=== PATIENT | male | born 1935 | race Caucasian/White ===

== ENCOUNTER 2019-12-25 20:43 | Inpatient (IN) | payer MEDICARE, MEDICAID ==
[~2019-12-25] VITALS: Ht 165.1 cm; Wt 77.5 kg
[2019-12-25] MEDS ORDERED: ATORVASTATIN 10 MG TAB PO SCH (21:00)
[2019-12-25] MEDS ORDERED: PREGABALIN 50 MG CAP (LYRICA) PO SCH (21:00)
[2019-12-25] MEDS ORDERED: LIDOCAINE 5% (LIDODERM) PATCH TD SCH (21:00)
[2019-12-25] MEDS ORDERED: ATOR1TAB19 (21:24)
[2019-12-25] MEDS ORDERED: METF500T13 (21:24)
[2019-12-25] MEDS ORDERED: ARNU1INH (21:24)
[2019-12-25] MEDS ORDERED: oxygen INH (21:24)
[2019-12-25] MEDS ORDERED: SPIR12.9 (21:24)
[2019-12-25] MEDS ORDERED: FERR325T88 (21:24)
[2019-12-25] MEDS ORDERED: ALBU8.5H (21:24)
[2019-12-25] MEDS ORDERED: GABA-1171 (21:24)
[2019-12-25] MEDS ORDERED: PREG50CA (21:24)
[2019-12-25] MEDS ORDERED: PROTPAK (21:24)
[2019-12-25] MEDS ORDERED: CYCL10TA (21:24)
[2019-12-25] MEDS ORDERED: ECOT81TA5 PO (21:24)
[2019-12-25] MEDS ORDERED: VENTAER (21:24)
[2019-12-25] MEDS ORDERED: LEVE1INJ5 (21:24)
[2019-12-25 21:54] LABS: BASO % 0.1 % (0.0-1.0); EOS % 0.1 % (0.0-3.0); HEMATOCRIT 30.4 % (42.0-52.0); HEMOGLOBIN 9.4 g/dl (13.5-17.5); LYMPH # 0.3 10^3/uL (1.5-5.0); LYMPH % 2.7 % (24.0-44.0); MEAN CORPUSCULAR HEMOGLOBIN 30.8 pg (27.0-33.0); MEAN CORPUSCULAR HGB CONC 30.9 g/dl (32.0-36.5); MEAN CORPUSCULAR VOLUME 99.7 fl (80.0-96.0); MONO # 0.1 10^3/uL (0.0-0.8); MONO % 0.6 % (0.0-5.0); NEUTROPHILS # 9.9 10^3/uL (1.5-8.5); PLATELET COUNT, AUTOMATED 208 10^3/uL (150-450); RED BLOOD COUNT 3.05 10^6/uL (4.30-6.10); WHITE BLOOD COUNT 10.3 10^3/uL (4.0-10.0)
--- NOTE | 2019-12-25 22:20 | REPVR ---
PROCEDURE INFORMATION: Exam: XR Chest, 1 View Exam date and time: 12/25/2019 9:28 PM Age: 84 years old Clinical indication: Other: SOB TECHNIQUE: Imaging protocol: XR of the chest Views: 1 view. COMPARISON: No relevant prior studies available. FINDINGS: Lungs: Bilateral cephalization of flow may indicate pulmonary venous hypertension. No segmental or lobar infiltrates. Pleural space: Unremarkable. No pleural effusion. No pneumothorax. Heart/Mediastinum: Unremarkable. No cardiomegaly. Bones/joints: Unremarkable. IMPRESSION: Bilateral cephalization of flow may indicate pulmonary venous hypertension. Electronically signed by: Osvaldo Alfaro On 12/25/2019 22:19:32 PM
[2019-12-25 22:23] LABS: ALBUMIN 3.6 GM/DL (3.2-5.2); BILIRUBIN,DIRECT 0.1 MG/DL (0.0-0.2); BILIRUBIN,TOTAL 0.3 MG/DL (0.2-1.0); CK-MB VALUE MASS 4.3 NG/ML (<3.6); CREATININE FOR GFR 1.61 MG/DL (0.70-1.30); GLOMERULAR FILTRATION RATE 43.5 (>35); MB/CK RELATIVE INDEX 4.06 (< OR =4); POTASSIUM SERUM 4.5 MEQ/L (3.5-5.1); TOTAL PROTEIN 7.4 GM/DL (6.4-8.2); TROPONIN I 0.2 NG/ML (< 0.10)
[2019-12-25] MEDS ORDERED: ACETAMINOPHEN TAB 650MG DOSE (2X325MG) PO PRN (23:15)
[2019-12-25] MEDS ORDERED: MAALOX 30 ML SUSP *UDC PO PRN (23:15)
[2019-12-25] MEDS ORDERED: ALBUTEROL 90 MCG/ACT 8GM HFA INHALER INH PRN (23:15)
--- NOTE | 2019-12-25 23:19 | HPEPDOC ---
[facility] Medical History & Physical Date of Admission Dec 25, 2019 Date of Service: Dec 25, 2019 Attending Physician: ROULA MORA MD History and Physical TIME OF SERVICE: 11:50 PM CHIEF COMPLAINT: Shortness of breath HISTORY OF PRESENT ILLNESS: This patient is a poor historian and wasn't able to provide his past medical history. The majority of history was obtained from ER documents. This is an 84-year-old male that was transferred from [facility] for evaluation by the pulmonary service because of acute COPD with BiPAP dependent respiratory failure. Per ER notes, he received mag sulfate, Lasix, Solu-Medrol, and to nip treatments at [facility] and was on 3 L nasal cannula, while he is being transported here; he has not required BiPAP since his arrival here. The patient reports presenting to [facility] because he developed sudden onset shortness of breath. He denies having associated chest pain, runny nose, cough, fever, chills, palpitations, dizziness, or back pain. He admits to having chronic left lower extremity swelling. Currently, he reports feeling better but is not quite back to his baseline. He is requesting to be transferred back home in the morning. 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 HOME MEDICATIONS: Please see below. PHYSICAL EXAMINATION: VITAL SIGNS: Please see below. GEN: well nourished / well developed/ NAD / sitting up in the ER by drinking coffee INTEGUMENT: He does not have facial plethora HEENT:NCAT / lips are not cyanotic / trachea midline / NC in place / maximal laryngeal height is <4cm / mucus membranes moist and pink / sclera anicteric CVS: RRR/ distant heart sounds / radial and dorsalis pedis pulses intact / he has left lower extremity swelling LUNGS: there is no nasal flairing /he is able to speak full sentences without stopping to take a breath / is not coughing or using accessory muscles / has equal air entry bilaterall / his breath sounds are diminished ABDOMEN: percussion, soft & not tender with palpation NEURO: He is hard of hearing / speech is not dysarthric /he does not have asterixis PSYCH: alert and oriented / able to understand and follow all commands LABORATORY DATA: See below. IMAGING: Chest x-ray " IMPRESSION: Bilateral cephalization of flow may indicate pulmonary venous hypertension. " ASSESSMENT: Mr. Wright is an 84 yr old M w a PMH of chronic CAD, hypertension, COPD, IDDM, and BPH who is admitted for management of acute COPD. PLAN: 1. Acute COPD It is unclear what the triggers right now Chest x-ray was unremarkable Plan: admit to PCU / continue with supplemental O2 / continuous pulse oximetry / aspiration precautions / COPD diet / f/u d-dimer, influenza / Dunebs Q6H, Albuterol Q4HP, Prednisone + PPI / will not give Levofloxacin because because he denies having a change in his cough/ refer to Pet Handler for repeat PFTs and Pulmonary Rehab when ready for d/c 2. Elevated troponin. Possibly due to renal impairment. He denies having chest pain but he does have shortness of breath, which could be an ACS equivalent Plan: Telemetry/follow-up, serial troponins, BNP and EKG 3. CKD versus MONICA on CKD His creatinine is 1.61 We do not have a baseline creatinine within the last 6 months. Plan: We'll give 500ml of IV fluids and f/u-up BMP in the morning 4. Macrocytic anemia Possibly secondary to COPD Plan: Follow-up CBC & monitor for bleeding 5. Chronic CAD / Dyslipidemia Plan: Continue aspirin and atorvastatin 6. Chronic hypertension Plan: Monitor vitals 7. IDDM His target A1c with a limited life expectancy is 8.5% Plan: diabetic diet / f/u accuchecks & A1C / hypoglycemia protocol / sliding scale insulin with detemir 15 units daily / hold metformin 8. Chronic back pain Plan: Lidocaine patch DVT PROPHYLAXIS: Heparin DISPOSITION: Anticipate transfer back to [facility] after more than 2 midnight stay / PFS consult has been placed Vital Signs Vital Signs Date Time Temp Pulse Resp B/P (MAP) Pulse Ox O2 Delivery O2 Flow Rate FiO2 12/25/19 21:45 144/63 (90) 12/25/19 21:43 73 100 Nasal Cannula 2.0 12/25/19 20:51 97.6 26 Laboratory Data Labs 24H Laboratory Tests 2 12/25/19 21:43: Immature Granulocyte % (Auto) 0.5, Neutrophils (%) (Auto) 96.0H, Lymphocytes (%) (Auto) 2.7L, Monocytes (%) (Auto) 0.6, Eosinophils (%) (Auto) 0.1, Basophils (%) (Auto) 0.1, Neutrophils # (Auto) 9.9H, Lymphocytes # (Auto) 0.3L, Monocytes # (Auto) 0.1, Eosinophils # (Auto) 0.0, Basophils # (Auto) 0.0, Nucleated Red Blood Cells % (auto) 0.0, Anion Gap 6L, Glomerular Filtration Rate 43.5, Calcium Level 9.0, Total Bilirubin 0.3, Direct Bilirubin 0.1, Aspartate Amino Transf (AST/SGOT) 11, Alanine Aminotransferase (ALT/SGPT) 35, Alkaline Phosphatase 88, Total Creatine Kinase 106, Creatine Kinase MB 4.3H, Creatine Kinase MB Relative Index 4.06H, Troponin I 0.20H, Total Protein 7.4, Albumin 3.6, Albumin/Globulin Ratio 0.95L 12/25/19 22:01: POC pH (Misc Panel) 7.413, POC Base Excess (Misc Panel) 6.0H, POC Saturated Percent O2 (Misc) 95, POC pO2 (Misc Panel) 78.0L, POC pCO2 (Misc Panel) 47.8H, POC HCO3 (Misc Panel) 30.5H, POC Total CO2 (Misc Panel) 32.0H CBC/BMP Laboratory Tests 12/25/19 21:43 Home Medications Scheduled Aspirin (Aspir-Low) 81 Mg Tablet.dr, 81 MG PO DAILY Atorvastatin Calcium (Atorvastatin Calcium) 10 Mg Tablet, 10 MG PO QHS Ferrous Sulfate (Ferrous Sulfate) 325 Mg Tablet, 325 MG PO DAILY Fluticasone Furoate (Arnuity Ellipta) 100 Mcg Blst.w.dev, 100 MCG INH DAILY Gabapentin (Gabapentin) 100 Mg Capsule, 200 MG PO BID Insulin Detemir (Levemir Flextouch) 100 Unit/1 Ml Insuln.pen, 15 UNIT SC DAILY Metformin HCl (Metformin HCl) 500 Mg Tablet, 500 MG PO BID Pantoprazole Sodium (Pantoprazole Sodium) 40 Mg Tablet.dr, 40 MG PO DAILY Pregabalin (Lyrica) 50 Mg Capsule, 50 MG PO QHS Tiotropium [place] (Spiriva Respimat) 4 Gm Mist.inhal, 1 PUFF INH DAILY Scheduled PRN Acetaminophen (Tylenol) 325 Mg Tablet, 650 MG PO TID PRN for PAIN Albuterol Sulfate (Ventolin Hfa) 18 Gm Hfa.aer.ad, 2 PUFF INH Q4H PRN for SHORTNESS OF BREATH Cyclobenzaprine HCl (Cyclobenzaprine HCl) 10 Mg Tablet, 10 MG PO QHS PRN for MUSCLE SPASMS Ipratropium/Albuterol Sulfate (Iprat-Albut 0.5-3(2.5) mg/3 ml) 3 Ml Ampul.neb, 3 ML INH Q4H PRN for SHORTNESS OF BREATH Allergies Coded Allergies: No Known Allergies (Verified , 07/31/07) A-FIB/CHADSVASC A-FIB History Current/History of A-Fib/PAF?: No Current PO Anticoag Therapy: No ROULA MORA MD Dec 25, 2019 23:18
[2019-12-25] MEDS: HEPARIN SOD (PORCINE) 5000 UNITS/ML VIAL (J1644 PER 1000UNITS) SC SCH (23:44)
[2019-12-25] MEDS ORDERED: ATOR1TAB19 PO (23:48)
[2019-12-25] MEDS ORDERED: ACET-907 PO (23:48)
[2019-12-25] MEDS ORDERED: FERR1TAB8 PO (23:48)
[2019-12-25] MEDS ORDERED: VENTAER INH (23:48)
[2019-12-25] MEDS ORDERED: ARNU1INH INH (23:48)
[2019-12-25] MEDS ORDERED: SPIR12.9 INH (23:48)
[2019-12-25] MEDS ORDERED: IPRA0.00 INH (23:48)
[2019-12-25] MEDS ORDERED: ASPI81TA21 PO (23:48)
[2019-12-25] MEDS ORDERED: PANT40TA3 PO (23:48)
[2019-12-25] MEDS ORDERED: GABA-1171 PO (23:48)
[2019-12-25] MEDS ORDERED: LEVE1INJ5 SC (23:48)
[2019-12-25] MEDS ORDERED: CYCL10TA PO (23:48)
[2019-12-25] MEDS ORDERED: PREG50CA PO (23:48)
[2019-12-25] MEDS ORDERED: METF-839 PO (23:48)
[2019-12-26] MEDS ORDERED: NS 1,000 ML IV SCH
[2019-12-26] MEDS ORDERED: LevoFLOXacin IV 250 MG in IV 1 EA IV SCH ×2
[2019-12-26] MEDS ORDERED: NS 500 ML IV SCH (01:15)
[2019-12-26] MEDS ORDERED: ACETAMINOPHEN TAB 650MG DOSE (2X325MG) PO PRN (01:15)
[2019-12-26] MEDS ORDERED: CYCLOBENZAPRINE 10 MG TAB PO PRN (01:15)
[2019-12-26 03:15] LABS: HEMATOCRIT 28.8 % (42.0-52.0); MEAN CORPUSCULAR HEMOGLOBIN 30.8 pg (27.0-33.0); MEAN CORPUSCULAR HGB CONC 31.3 g/dl (32.0-36.5); MEAN CORPUSCULAR VOLUME 98.6 fl (80.0-96.0); PLATELET COUNT, AUTOMATED 210 10^3/uL (150-450); RED BLOOD COUNT 2.92 10^6/uL (4.30-6.10); WHITE BLOOD COUNT 6.8 10^3/uL (4.0-10.0)
[2019-12-26] MEDS: IPRATROPIUM 0.5MG/ALBUTEROL 2.5MG INH SOL UD 3ML (DUONEB)(J7620) NEB SCH ×3 (03:45→13:06)
[2019-12-26 03:46] LABS: CALCIUM LEVEL 8.6 MG/DL (8.8-10.2); CREATININE FOR GFR 1.53 MG/DL (0.70-1.30); GLOMERULAR FILTRATION RATE 46.2 (>35); POTASSIUM SERUM 5.1 MEQ/L (3.5-5.1); TROPONIN I 0.22 NG/ML (< 0.10)
[2019-12-26] MEDS ORDERED: TIOTROPIUM INHALER/CAPSULE (SPIRIVA) INH SCH (08:00)
[2019-12-26 08:16] VITALS: BP 182/78
[2019-12-26] MEDS ORDERED: PANTOPRAZOLE 40MG TAB (PROTONIX) PO SCH (09:00)
[2019-12-26] MEDS ORDERED: predniSONE 20 MG TAB PO SCH (09:00)
[2019-12-26] MEDS ORDERED: **NOTE PATIENT COMMENT** MISC XX SCH (09:00)
[2019-12-26] MEDS ORDERED: FERROUS SULFATE 325MG TAB PO SCH (09:00)
[2019-12-26] MEDS ORDERED: ASPIRIN 81 MG ENTERIC TAB PO SCH (09:00)
[2019-12-26] MEDS ORDERED: GABAPENTIN 100 MG CAP PO SCH (09:00)
[2019-12-26] MEDS ORDERED: LEVEMIR (INSULIN DETEMIR) 1 UNITS/0.01ML SC SCH (09:00)
[2019-12-26] MEDS: HEPARIN SOD (PORCINE) 5000 UNITS/ML VIAL (J1644 PER 1000UNITS) SC SCH (09:16)
[2019-12-26 10:00] VITALS: BP 158/68
--- NOTE | 2019-12-26 10:40 | IPNPDOC ---
Date Seen The patient was seen on 12/26/19. Progress Note SUBJECTIVE: 84-year-old male with past medical history of COPD, hypertension, diabetes mellitus, coronary artery disease and BPH was sent from [place] and admitted for COPD exacerbation. Patient is seen in the morning, unsure why he he was sent to [facility] and wishes to go back to assisted living and [facility]. He is resting comfortably in bed, without any complaints, reports he is at his baseline. He denies any shortness of breath, chest pain, coughing, nausea, vomiting, abdominal pain or diarrhea. Of note, patient had a Hughes catheter placed at [facility], unsure why was placed. 10 point review of system is negative except for above PHYSICAL EXAMINATION: VITAL SIGNS: Please see below. GENERAL: No distress HEENT: Normocephalic, atraumatic, moist mucous membranes NECK: Supple CARDIOVASCULAR EXAMINATION: S1, S2, no murmurs RESPIRATORY EXAMINATION: Diminished breath sounds, mild wheezing, poor air movement ABDOMINAL EXAMINATION: Soft, nontender, nondistended, positive bowel sounds EXTREMITIES: Lower extremity edema SKIN: No rash NEUROLOGICAL EXAMINATION: Alert and oriented 3, no focal deficits PSYCHIATRIC EXAMINATION: Calm and cooperative LABORATORY DATA, IMAGING STUDIES, MICROBIOLOGY: Please see below. DVT prophylaxis ordered?: Yes ASSESSMENT AND PLAN: 84-year-old male with past medical history of COPD, CAD, hypertension, diabetes mellitus and BPH is admitted for COPD exacerbation. PROBLEMS: 1. COPD exacerbation: Mild, clinically appears to be at his baseline, requiring baseline supplemental oxygen to maintain adequate saturation, continue prednison e, Spiriva and DuoNeb as needed. 2. BPH: Hughes was placed at [facility], patient unsure why, will discontinue Hughes and attempt a voiding trial. 3. Coronary artery disease: Continue aspirin, statin. 4. Diabetes mellitus: Continue Levemir 50 units at bedtime, sliding scale insulin with meals and at bedtime. DVT prophylaxis: Heparin subcutaneous GI prophylaxis: Protonix VS, I&O, 24H, Fishbone Vital Signs/I&O Vital Signs Date Time Temp Pulse Resp B/P (MAP) Pulse Ox O2 Delivery O2 Flow Rate FiO2 12/26/19 08:16 97.8 89 28 182/78 (112) 98 Nasal Cannula 2.0 I&O- Last 24 Hours up to 6 AM 12/26/19 06:00 Intake Total 50 ml Balance 50 ml Laboratory Data 24H LABS Laboratory Tests 2 12/25/19 21:43: Immature Granulocyte % (Auto) 0.5, Neutrophils (%) (Auto) 96.0H, Lymphocytes (%) (Auto) 2.7L, Monocytes (%) (Auto) 0.6, Eosinophils (%) (Auto) 0.1, Basophils (%) (Auto) 0.1, Neutrophils # (Auto) 9.9H, Lymphocytes # (Auto) 0.3L, Monocytes # (Auto) 0.1, Eosinophils # (Auto) 0.0, Basophils # (Auto) 0.0, Nucleated Red Blood Cells % (auto) 0.0, Anion Gap 6L, Glomerular Filtration Rate 43.5, Calcium Level 9.0, Total Bilirubin 0.3, Direct Bilirubin 0.1, Aspartate Amino Transf (AST/SGOT) 11, Alanine Aminotransferase (ALT/SGPT) 35, Alkaline Phosphatase 88, Total Creatine Kinase 106, Creatine Kinase MB 4.3H, Creatine Kinase MB Relative Index 4.06H, Troponin I 0.20H, GH-Xuz-M-Type Natriuretic Peptide 1556H, Total Protein 7.4, Albumin 3.6, Albumin/Globulin Ratio 0.95L 12/25/19 22:01: POC pH (Misc Panel) 7.413, POC Base Excess (Misc Panel) 6.0H, POC Saturated Percent O2 (Misc) 95, POC pO2 (Misc Panel) 78.0L, POC pCO2 (Misc Panel) 47.8H, POC HCO3 (Misc Panel) 30.5H, POC Total CO2 (Misc Panel) 32.0H 12/26/19 03:07: Nucleated Red Blood Cells % (auto) 0.0, Anion Gap 5L, Glomerular Filtration Rate 46.2, Calcium Level 8.6L, Troponin I 0.22H, ZI-Uvl-L-Type Natriuretic Peptide 1710H, D-Dimer, Quantitative < 270, Magnesium Level 2.0 12/26/19 08:57: Troponin I 0.17#H CBC/BMP Laboratory Tests 12/25/19 21:43 12/26/19 03:07 Microbiology Microbiology 12/26/19 Respiratory Virus Panel (PCR) (JORDON), Received Pending BRIAN WARE MD Dec 26, 2019 10:40
[2019-12-26] MEDS ORDERED: GLUCAGON FOR INJ 1 MG VIAL (J1610) SC PRN (10:45)
[2019-12-26] MEDS ORDERED: DEXTROSE 50% 50 ML SYRINGE IV PRN (10:45)
[2019-12-26] MEDS ORDERED: GLUCOSE 4 GM CHEW TABLET PO PRN (10:45)
[2019-12-26] MEDS ORDERED: PRED10TA2 PO (11:10)
[2019-12-26] MEDS ORDERED: HumaLOG INSULIN (NovoLOG) PER UNIT SC SCH ×2 (12:00→21:00)
--- NOTE | 2019-12-27 00:55 | ECGEPIP ---
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 HEART RATE WAS SLOWER AT 73 BEATS PER MINUTE ON AND ISOLATED PACS WERE NOTED, OTHERWISE UNREMARKABLE Electronically Signed on 12-27-2019 0:54:53 EST by Vinicius Porter
[2019-12-27] MEDS ORDERED: FLUBLOK(EGG FREE)(QUAD)INFLUENZA VACC 0.5ML SYRINGE (90682)18YRS&OLDER IM ONE (09:00)
[2019-12-27] MEDS ORDERED: PREVNAR 13 VACCINE SYRINGE (CPT CODE:90670) IM ONE (09:00)
--- NOTE | 2019-12-27 13:14 | ECGEPIP ---
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
== END 2019-12-26 13:16 | disposition home or self-care (01) | DRG 192 ==
LOC: M ED 20:43 → M ED INP 23:11 → ENRESERVDT 12-26 06:56 → ENRESERVTM 12-26 06:56 → M PCU 12-26 08:10
PROVIDERS: ADMIT Internal Medicine; ATTEND Internal Medicine
DX: J44.1 Chronic obstructive pulmonary disease with (acute) exacerbation (principal); I25.10 Atherosclerotic heart disease of native coronary artery without angina pectoris; E78.5 Hyperlipidemia, unspecified; I12.9 Hypertensive chronic kidney disease with stage 1 through stage 4 chronic kidney disease, or unspecified chronic kidney disease; E11.22 Type 2 diabetes mellitus with diabetic chronic kidney disease; N40.0 Benign prostatic hyperplasia without lower urinary tract symptoms; R26.89 Other abnormalities of gait and mobility; D53.9 Nutritional anemia, unspecified; N18.9 Chronic kidney disease, unspecified; Z87.891 Personal history of nicotine dependence; Z79.82 Long term (current) use of aspirin; Z79.4 Long term (current) use of insulin; Z79.899 Other long term (current) drug therapy

== ENCOUNTER 2020-03-26 18:19 | Inpatient (IN) | payer MEDICARE ==
[~2020-03-26] VITALS: Ht 167.6 cm; Wt 84.3 kg
[~2020-03-26 18:19] MED LIST: ACET-907 PO; ALBU8.5H; ARNU1INH; ARNU1INH INH; ASPI81TA21 PO; ATOR1TAB19; ATOR1TAB19 PO; CYCL-707; CYCL-707 PO; ECOT81TA5 PO; FERR1TAB8 PO; FERR325T88; GABA-1171; GABA-1171 PO; IPRA0.00 INH; LEVE1INJ5; LEVE1INJ5 SC; METF-839 PO; METF500T13; PANT40TA3 PO; PRED10TA2 PO; PREG50CA; PREG50CA PO; PROTPAK; SPIR12.9; SPIR12.9 INH; VENTAER; VENTAER INH; oxygen INH
[2020-03-26 18:57] LABS: BASO % 0.4 % (0.0-1.0); EOS # 0.2 10^3/uL (0.0-0.5); HEMATOCRIT 27.1 % (42.0-52.0); HEMOGLOBIN 8.3 g/dl (13.5-17.5); LYMPH # 1.8 10^3/uL (1.5-5.0); LYMPH % 20.1 % (24.0-44.0); MEAN CORPUSCULAR HEMOGLOBIN 30.4 pg (27.0-33.0); MEAN CORPUSCULAR HGB CONC 30.6 g/dl (32.0-36.5); MEAN CORPUSCULAR VOLUME 99.3 fl (80.0-96.0); MONO # 0.8 10^3/uL (0.0-0.8); MONO % 9.2 % (0.0-5.0); NEUTROPHILS # 6.1 10^3/uL (1.5-8.5); PLATELET COUNT, AUTOMATED 160 10^3/uL (150-450); RED BLOOD COUNT 2.73 10^6/uL (4.30-6.10)
[2020-03-26] MEDS ORDERED: FURO40TA2 PO (19:18)
[2020-03-26] MEDS ORDERED: LEVE1INJ5 SC (19:18)
[2020-03-26] MEDS ORDERED: NOVOINJ3 SC (19:18)
[2020-03-26] MEDS ORDERED: KLOR20TA42 PO (19:18)
[2020-03-26] MEDS ORDERED: LISI2.5T76 PO (19:18)
[2020-03-26 19:22] LABS: INR 1.11
[2020-03-26 19:33] LABS: ALBUMIN 3.5 GM/DL (3.2-5.2); ALT/SGPT 26 U/L (12-78); BILIRUBIN,DIRECT < 0.1 MG/DL (0.0-0.2); BILIRUBIN,TOTAL 0.3 MG/DL (0.2-1.0); BLOOD UREA NITROGEN 65 MG/DL (7-18); CALCIUM LEVEL 9.2 MG/DL (8.8-10.2); CARBON DIOXIDE LEVEL 31 MEQ/L (21-32); CHLORIDE LEVEL 100 MEQ/L (98-107); CK-MB VALUE MASS 2.7 NG/ML (<3.6); CPK CREATINE PHOSPHOKINASE 109 U/L (39-308); CREATININE FOR GFR 2.35 MG/DL (0.70-1.30); GLOMERULAR FILTRATION RATE 28.1 (>35); GLUCOSE, FASTING 160 MG/DL (70-100); LIPASE 134 U/L (73-393); MB/CK RELATIVE INDEX 2.48 (< OR =4); NT-PRO BNP 480 PG/ML (<450); POTASSIUM SERUM 4.7 MEQ/L (3.5-5.1); SODIUM LEVEL 137 MEQ/L (136-145); TOTAL PROTEIN 7.5 GM/DL (6.4-8.2); TROPONIN I < 0.02 NG/ML (< 0.10)
[2020-03-26] MEDS ORDERED: NS 1,000 ML IV ONE (19:45)
[2020-03-26] MEDS ORDERED: DEXTROSE 50% 50 ML SYRINGE IV PRN (20:15)
[2020-03-26] MEDS ORDERED: ACETAMINOPHEN TAB 650MG DOSE (2X325MG) PO PRN (20:15)
[2020-03-26] MEDS ORDERED: RAMELTEON 8 MG TAB (ROZEREM) PO PRN (20:15)
[2020-03-26] MEDS ORDERED: GLUCAGON INJ 1MG VIAL SC PRN (20:15)
[2020-03-26] MEDS ORDERED: GLUCOSE 4GM CHEW TABLET PO PRN (20:15)
[2020-03-26] MEDS ORDERED: LIDOCAINE 5% (LIDODERM) PATCH TD PRN (20:15)
--- NOTE | 2020-03-26 20:16 | HPEPDOC ---
[facility] Medical History & Physical Date of Admission Mar 26, 2020 Date of Service: Mar 26, 2020 Attending Physician: ROULA MORA MD History and Physical TIME OF SERVICE: 8:30 PM CHIEF COMPLAINT: Sent from [facility] for evaluation of low hemoglobin HISTORY OF PRESENT ILLNESS: This is an 84 old gentleman who was sent from [facility] for evaluation of acute anemia. The patient's only complaint is of feeling weak and falling several times over the last few days; he denies hitting his head. He denies having chest pain, dizziness, abdominal pain, or change in his chronic cough. He is feeling a bit short of breath right now; he reports having a BiPAP or CPAP machine which he uses intermittently, even during the day. He is not sure what the settings are; I called [facility] to obtain the settings but there was no response. Per discussion with Xavier Hunt, the patient's Hemoccult was positive. 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 HOME MEDICATIONS: Please see below. PHYSICAL EXAMINATION: Vital Signs Date Time Temp Pulse Resp B/P (MAP) Pulse Ox O2 Delivery O2 Flow Rate FiO2 03/26/20 18:33 150/63 (92) 03/26/20 18:34 72 100 03/26/20 18:36 97.6 18 Room Air 03/26/20 19:19 3.0 GEN: well-nourished / well developed INTEGUMENT: not flushed/ not jaundice HEENT: NCAT /mucus membranes moist and pink CVS: RRR/NMRG LUNGS: able to speak full sentences without stopping to take a breath / no coughing / there is decreased air entry and breath sounds are deminished ABDOMEN: Contour ( obese ) / firm & not tender with palpation MSK/EXTREMITIES: range of motion intact in all 4 extremities NEURO: CN 2-12 are grossly intact / speech is not dysarthric PSYCH: alert and oriented / able to understand and follow all commands LABORATORY DATA: IMAGING: Chest xray shows blunting of the cardiac silhouette on the right and left sides, but the final read is pending MICROBIOLOGY: Please see below. ASSESSMENT: Mr. Wright is an 84 yr old M w a PMH of chronic CAD, hypertension, COPD, IDDM, and BPH who is admitted for evaluation of MONICA on CKD, acute anemia and weakness. PLAN: 1. MONICA on CKD May be due to: prerenal azotemia (dehydration ACEI) vs postrenal azotemia (BPH) His creatinine has increased to 2.35 from a baseline of 1.53, BUN has increased to 65 from a baseline of 34 . GFR has dropped to 28 from a baseline of 46.2 CK is within normal limits Plan: admit to medical floor / f/u Is/Os, daily weights / NS @ 70ml/H / f/u phosphorus, vitamin D, SPEP, Hepatitis Panel, PTH, VBG, Uric Acid, C3, C4, Iron Panel w Ferritin, ulytes for FEUrea, UPro:Cr ratio & renal US / hold metformin & lisinopril / if his renal function doesn't improve the day time team may also consider dc PPI which can also cause Cr to increase/ renal diet 2. Acute Macrocytic Anemia Multifactorial 2/2 COPD, lower GI bleed? and possibly decreased EPO production due to worsening renal function His hemoglobin has dropped to 8.3 from a baseline of 9.4 Plan: f/u serial Hg, Iron panel, B12, RBC folate and stool occult / if Hg continues to drop the day time team may consider consulting GI or Gen Surg for C-scope / hold oral iron in case he needs a C-scope 3. Falls/Weakness Unclear if this is due to symptomatic anemia and or deconditioning ? Plan: PT/OT / fall precautions 4. Mild COPD Exacerbation Suspect this is due to not having access to his PAP machine which he says he uses intermittently during the day; the VBG shows hypercarbia He denies having a change in his chronic cough, he is afebrile and his WBC count is within normal limits. Plan: f/u final chest xray report / supplemental O2 / continuous pulse oximetry / aspiration precautions / c/w Spiriva / Dunebs Q6H, Albuterol Q4HP, Prednisone + PPI / will ask the day time team to call [facility] tomorrow to get his PAP settings / refer to [employer] Super[facility] for repeat PFTs and Pulmonary Rehab when ready for d/c 5. Chronic CAD / Dyslipidemia - Plan: aspirin and atorvastatin 6. Chronic hypertension - Plan: c/w lasix / hold lisinopril bc of MONICA 7. IDDM w Neuropathy - Plan: diabetic diet / f/u accuchecks & A1C / h ypoglycemia protocol / sliding scale insulin with levermir 15 units BID (home med is determir 15 units BID) / hold metformin bc of MONICA / gabapentin 8. Chronic back pain - Plan: Lidocaine patch 9. Class 1 Obesity with BMI of 37.9 and co-existing DM and MARIYA? complicates care. - Plan: f/u A1C DVT PROPHYLAXIS: Heparin q12h bc of low BMI and renal impairment DISPOSITION: Anticipate transfer back to shelter [facility] after more than 2 midnight stay / PFS consult has been placed Vital Signs Vital Signs Date Time Temp Pulse Resp B/P (MAP) Pulse Ox O2 Delivery O2 Flow Rate FiO2 03/26/20 19:46 114/69 (84) 03/26/20 19:34 76 20 98 Nasal Cannula 3.0 03/26/20 18:36 97.6 Laboratory Data Labs 24H Laboratory Tests 2 03/26/20 18:47: Immature Granulocyte % (Auto) 0.3, Neutrophils (%) (Auto) 68.0H, Lymphocytes (%) (Auto) 20.1L, Monocytes (%) (Auto) 9.2H, Eosinophils (%) (Auto) 2.0, Basophils (%) (Auto) 0.4, Neutrophils # (Auto) 6.1, Lymphocytes # (Auto) 1.8, Monocytes # (Auto) 0.8, Eosinophils # (Auto) 0.2, Basophils # (Auto) 0.0, Nucleated Red Blood Cells % (auto) 0.0, Prothrombin Time 14.0, Prothromb Time International Ratio 1.11, Activated Partial Thromboplast Time 22.0L, Anion Gap 6L, Glomerular Filtration Rate 28.1L, Calcium Level 9.2, Total Bilirubin 0.3, Direct Bilirubin < 0.1, Aspartate Amino Transf (AST/SGOT) 11, Alanine Aminotransferase (ALT/SGPT) 26, Alkaline Phosphatase 85, Total Creatine Kinase 109, Creatine Kinase MB 2.7, Creatine Kinase MB Relative Index 2.48, Troponin I < 0.02, UB-Vbz-Z-Type Natriuretic Peptide 480H, Total Protein 7.5, Albumin 3.5, Albumin/Globulin Ratio 0.88L, Lipase 134, Thyroid Stimulating Hormone (TSH) 1.020 CBC/BMP Laboratory Tests 03/26/20 18:47 Home Medications Scheduled Atorvastatin Calcium (Atorvastatin Calcium) 10 Mg Tablet, 10 MG PO QHS Ferrous Sulfate (Ferrous Sulfate) 325 Mg Tablet, 325 MG PO DAILY Fluticasone Furoate (Arnuity Ellipta) 100 Mcg Blst.w.dev, 1 PUFF INH DAILY Furosemide (Furosemide) 40 Mg Tablet, 40 MG PO DAILY Gabapentin (Gabapentin) 400 Mg Capsule, 400 MG PO TID Insulin Aspart (Novolog Flexpen) 100 Unit/1 Ml Insuln.pen, 1 DOSE SC AC PER SLIDING SCALE Insulin Detemir (Levemir Flextouch) 100 Unit/1 Ml Insuln.pen, 15 UNIT SC BID Lisinopril (Lisinopril) 2.5 Mg Tablet, 2.5 MG PO DAILY Metformin HCl (Metformin HCl) 500 Mg Tablet, 500 MG PO BID Pantoprazole Sodium (Pantoprazole Sodium) 40 Mg Tablet.dr, 40 MG PO DAILY Potassium Chloride (Klor-Con M20) 20 Meq Tab.er.prt, 20 MEQ PO DAILY Tiotropium [place] (Spiriva Respimat) 4 Gm Mist.inhal, 2 PUFF INH DAILY Scheduled PRN Acetaminophen (Acetaminophen 8 Hour) 650 Mg Tablet.er, 650 MG PO TID PRN for PAIN Albuterol Sulfate (Ventolin Hfa) 18 Gm Hfa.aer.ad, 2 PUFF INH Q4H PRN for SHORTN ESS OF BREATH Cyclobenzaprine HCl (Cyclobenzaprine HCl) 10 Mg Tablet, 10 MG PO QHS PRN for MUSCLE SPASMS Diclofenac Sodium (Diclofenac Sodium) 1% 100GM Gel..gram., 1 GM TOP TID PRN for PAIN APPLY TO FEET Ipratropium/Albuterol Sulfate (Iprat-Albut 0.5-3(2.5) mg/3 ml) 3 Ml Ampul.neb, 3 ML INH Q4H PRN for SHORTNESS OF BREATH Allergies Coded Allergies: No Known Allergies (Verified , 07/31/07) A-FIB/CHADSVASC A-FIB History Current/History of A-Fib/PAF?: No Current PO Anticoag Therapy: No ROULA MORA MD Mar 26, 2020 20:16
[2020-03-26] MEDS ORDERED: ALBUTEROL SULFATE 2.5 MG/0.5 ML INH NEB SOLN NEB ONE (20:45)
[2020-03-26 20:49] LABS: HEMATOCRIT 27.1 % (42.0-52.0)
[2020-03-26] MEDS: **NOTE PATIENT COMMENT** MISC XX SCH (21:00)
[2020-03-26] MEDS: HumaLOG INSULIN (NovoLOG) PER UNIT SC SCH (21:00)
[2020-03-26 21:05] LABS: COMPLEMENT C3 109 MG/DL (90-180); COMPLEMENT C4 24 MG/DL (10-40); FERRITIN 40 NG/ML (26-388); IRON (FE) 21 UG/DL (65-175); PERCENT SATURATION 6.1 % (19.7-50.0); TOTAL IRON BINDING CAPACITY 343 UG/DL (250-450); TOTAL PROTEIN 6.8 GM/DL (6.4-8.2); URIC ACID 8.8 MG/DL (3.5-7.2)
--- NOTE | 2020-03-26 21:05 | REPVR ---
PROCEDURE INFORMATION: Exam: US Retroperitoneal Limited, Kidneys Exam date and time: 03/26/2020 8:55 PM Age: 84 years old Clinical indication: Abdominal pain; Flank; Left lower quadrant (llq); Additional info: Manuel on ckd TECHNIQUE: Imaging protocol: Real-time ultrasound of the retroperitoneum with image documentation. Examination was focused on the kidneys. COMPARISON: No relevant prior studies available. FINDINGS: Right kidney: Right kidney measures 10.5 x 4.7 x 4.7 cm. There is right renal cortical thinning. Simple right renal cyst measures up to 2.3 centimetres, no follow-up recommended. Left kidney: Left kidney measures 9.8 x 4.7 x 4.7 cm. There is left renal cortical thinning. Mild left-sided hydronephrosis. Bladder: No focal abnormality involving the urinary bladder. Urinary bladder is distended. IMPRESSION: 1. Mild left-sided hydronephrosis. 2. Bilateral cortical thinning compatible with chronic medical renal disease. COMMENTS: Consistent with the [employer]'s Incidental Findings Committee white paper (J Am Guillermo Radiol 2018): Any incidental cystic renal lesion classified in this report as too small to characterize or simple appearing is likely a benign cyst. No follow-up imaging is recommended for these lesions per consensus recommendations based on imaging criteria. Electronically signed by: Jean Paul Moreau On 03/26/2020 21:05:03 PM
[2020-03-26 21:10] LABS: HEMOGLOBIN A1c 5.6 %
[2020-03-26 21:11] LABS: VENOUS BASE EXCESS 5.9 (-2.0-2.0); VENOUS HCO3 31.5 MEQ/L (23.0-27.0); VENOUS O2 SATURATION 98.8 % (60.0-80.0); VENOUS PARTIAL PRESSURE CO2 52.1 mmHg (38.0-50.0); VENOUS PARTIAL PRESSURE O2 132.3 mmHg (30.0-50.0); VENOUS STANDARD HCO3 29.8 MEQ/L; VENOUS TOTAL CO2 33.1 MEQ/L (24.0-28.0)
[2020-03-26 21:11] LABS: PTH INTACT 127.6 PG/ML (18.5-88.0); TOTAL 25(OH) VITAMIN D 18.2 NG/ML (30.0-100.0)
[2020-03-26 21:12] LABS: VITAMIN B12 LEVEL 417 PG/ML (247-911)
[2020-03-26 21:51] LABS: INR 1.18; PROTHROMBIN TIME 14.7 SECONDS (11.8-14.0)
[2020-03-26 21:52] LABS: PARTIAL THROMBOPLASTIN TIME 73.4 SECONDS (25.0-38.4)
[2020-03-26 22:00] VITALS: BP 127/92
[2020-03-26] MEDS ORDERED: DICL1GEL3 TOP (22:04)
[2020-03-26] MEDS ORDERED: QC A650T3 PO (22:04)
[2020-03-26] MEDS ORDERED: GABA-845 PO (22:04)
[2020-03-26] MEDS ORDERED: methylPREDNISolone INJ 125 MG/2 ML VIAL (J2930) IV ONE (22:45)
--- NOTE | 2020-03-26 23:15 | REP ---
CHEST, SINGLE VIEW: Single view of the chest is performed and compared to prior study of 12/25/2019. There is mild cardiomegaly. There are increased interstitial densities bilaterally, unchanged. No new infiltrate is seen. The mediastinal silhouette is unchanged. There is mild calcification and tortuosity of the thoracic aorta. IMPRESSION: Cardiomegaly and chronic interstitial changes. No acute pulmonary disease. Electronically Signed by Jay Candelario MD 03/27/2020 09:33 A
[2020-03-26] MEDS: LEVEMIR (INSULIN DETEMIR) 1 UNITS/0.01ML SC SCH (23:43)
[2020-03-26] MEDS: ATORVASTATIN 10 MG TAB PO SCH (23:43)
[2020-03-26] MEDS: DOCUSATE SODIUM 100 MG CAP PO SCH (23:43)
[2020-03-26] MEDS: GABAPENTIN 400 MG CAP PO SCH (23:43)
[2020-03-26] MEDS: NS 1,000 ML IV SCH (23:44)
--- NOTE | 2020-03-27 02:01 | ECGEPIP ---
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
[2020-03-27] MEDS: IPRATROPIUM 0.5MG/ALBUTEROL 2.5MG INH SOL UD 3ML (DUONEB)(J7620) NEB PRN ×2 (05:45→16:51)
[2020-03-27 06:00] VITALS: BP 130/67
[2020-03-27 06:40] LABS: APPEARANCE, URINE CLEAR (CLEAR); BACTERIA, URINE AUTO NEGATIVE (NEGATIVE); BILIRUBIN, URINE AUTO NEGATIVE (NEGATIVE); BLOOD, URINE BLOOD NEGATIVE (NEGATIVE); COLOR, URINE YELLOW (YELLOW); GLUCOSE, URINE (UA) AUTO NEGATIVE (NEGATIVE); KETONE, URINE AUTO NEGATIVE (NEGATIVE); LEUKOCYTE ESTERASE, URINE AUTO NEGATIVE (NEGATIVE); MUCUS, URINE SMALL (NEGATIVE); NITRITE, URINE AUTO NEGATIVE (NEGATIVE); PROTEIN, URINE AUTO NEGATIVE (NEGATIVE); RBC, URINE AUTO 1 /HPF (0-3); SPECIFIC GRAVITY URINE AUTO 1.011 (1.002-1.035); SQUAMOUS EPITHELIAL CELL UR AU 0 /HPF (0-6); UROBILINOGEN, URINE AUTO 0.2 mg/dL (0.0-2.0); WBC, URINE AUTO 0 /HPF (0-3)
[2020-03-27 07:10] LABS: POTASSIUM RANDOM URINE 49.7 MEQ/L
[2020-03-27 07:24] LABS: ALBUMIN 3.3 GM/DL (3.2-5.2); BILIRUBIN,TOTAL 0.4 MG/DL (0.2-1.0); CALCIUM LEVEL 8.6 MG/DL (8.8-10.2); CREATININE FOR GFR 1.82 MG/DL (0.70-1.30); GLOMERULAR FILTRATION RATE 37.8 (>35); POTASSIUM SERUM 5.3 MEQ/L (3.5-5.1); TOTAL PROTEIN 6.8 GM/DL (6.4-8.2)
[2020-03-27] MEDS: TIOTROPIUM INHALER/CAPSULE (SPIRIVA) INH SCH (07:31)
[2020-03-27 08:40] LABS: HEMATOCRIT 26.5 % (42.0-52.0); HEMOGLOBIN 8.3 g/dl (13.5-17.5); MEAN CORPUSCULAR HEMOGLOBIN 30.7 pg (27.0-33.0); MEAN CORPUSCULAR HGB CONC 31.3 g/dl (32.0-36.5); MEAN CORPUSCULAR VOLUME 98.1 fl (80.0-96.0); PLATELET COUNT, AUTOMATED 168 10^3/uL (150-450); WHITE BLOOD COUNT 8.9 10^3/uL (4.0-10.0)
[2020-03-27] MEDS ORDERED: predniSONE 20 MG TAB PO SCH (09:00)
[2020-03-27 09:13] LABS: HEPATITIS B SURFACE ANTIBODY NEGATIVE (POSITIVE)
[2020-03-27] MEDS: GABAPENTIN 400 MG CAP PO SCH ×3 (09:22→21:03)
[2020-03-27] MEDS: HEPARIN SOD (PORCINE) 5000UNITS/ML VIAL (J1644 PER 1000UNITS) SC SCH ×2 (09:22→21:03)
[2020-03-27 09:23] LABS: HEPATITIS B SURFACE ANTIGEN NEGATIVE (NEGATIVE)
[2020-03-27] MEDS: DOCUSATE SODIUM 100 MG CAP PO SCH ×2 (09:23→21:03)
[2020-03-27] MEDS: PANTOPRAZOLE 40MG TAB (PROTONIX) PO SCH (09:23)
[2020-03-27] MEDS: FUROSEMIDE 40 MG TAB PO SCH (09:24)
[2020-03-27] MEDS: LEVEMIR (INSULIN DETEMIR) 1 UNITS/0.01ML SC SCH ×2 (09:24→21:04)
[2020-03-27] MEDS: FERROUS SULFATE 325MG TAB PO SCH (09:24)
[2020-03-27] MEDS: HumaLOG INSULIN (NovoLOG) PER UNIT SC SCH ×4 (09:25→21:04)
[2020-03-27] MEDS: NS 1,000 ML IV SCH (10:21)
[2020-03-27 11:24] LABS: HEPATITIS B CORE ANTIBODY IGM NEGATIVE (NEGATIVE)
--- NOTE | 2020-03-27 11:29 | IPNPDOC ---
Subjective Date Seen The patient was seen on 03/27/20. Subjective Chief Complaint/HPI Patient offers no complaints. He is wondering why he is here and wants go back to [facility]. No chest pain, shortness of breath, nausea, vomiting General: Denies: ROS Unobtainable, Chills, Night Sweats, Fatigue, Malaise, Normal Appetite, Other Symptoms Constitutional: Denies: Chills, Fever, Malaise, Night Sweats, Weakness, Fatigue, Weight Loss, Lethargy, Other Skin: Denies: Rash, Lesions, Jaundice, Bruising, Itching, Dry, Breakdown, Nail Changes, Other Cardiovascular: Denies: Chest Pain, Palpitations, Orthopnea, Paroxysmal Noc. Dyspnea, Edema, Lt Headedness, Other Symptoms Gastrointestinal: Denies: Nausea, Vomiting, Abdominal Pain, Diarrhea, Constipation, Melena, Hematochezia, Other Symptoms Musculoskeletal: Denies: Neck Pain, Back Pain, Shoulder Pain, Arm Pain, Hand Pain, Leg Pain, Foot Pain, Joint Pain, Muscle Pain, Spasms, Other Symptoms Neurological: Denies: Weakness, Numbness, Incoordination, Change in speech, Confusion, Seizures, Other Symptoms Objective Physical Examination General Exam: Positive: Alert, Cooperative Eye Exam: Positive: PERRLA, Conjunctiva & lids normal ENT Exam: Positive: Atraumatic Neck Exam: Positive: Supple Chest Exam: Positive: Clear to auscultation, Normal air movement Heart Exam: Positive: Rate Normal, Normal S1, Normal S2 Abdomen Exam: Positive: Normal bowel sounds, Soft Extremity Exam: Positive: Other (. 2+ bipedal edema) Skin Exam: Positive: Nl turgor and temperature Neuro Exam: Positive: Sensation Intact, Cranial Nerves 3-12 NL Psych Exam: Positive: Mood NL, Oriented x 3 Assessment /Plan Problems (1) Chronic anemia Status: Chronic Problem Text: His old record checked his baseline hemoglobin has been 9.0 Is a repeat hemoglobin level this morning is 8.3 and hematocrit 27.1 I doubt there is any concern for acute anemia as patient has a history of stable chronic anemia Anemia workup has been ordered by admitting physician and will follow when available Will monitor CBC on daily basis and transfuse as needed (2) MONICA (acute kidney injury) Status: Acute Problem Text: MONICA on CK D, most likely secondary to poor oral intake and meds All old records checked patient's baseline creatinine is 1.5 Patient's creatinine this morning is 1.8 Patient receiving IV fluids and will continue gentle hydration. He'll reach his baseline creatinine 1.5 Repeat BUN/creatinine in a.m. (3) Weakness Status: Chronic Problem Text: Most likely deconditioning PT/OT was called Patient will probably need physical therapy once discharged back to [facility] (4) COPD exacerbation Status: Acute Problem Text: Patient's lungs are clear to auscultation today Improved respiratory status with prednisone Slowly tapered off prednisone and DC it Continue nebulizer treatment as per orders Plan/VTE VTE Prophylaxis Ordered?: Yes VS, I&O, 24H, Fishbone Vital Signs/I&O Vital Signs Date Time Temp Pulse Resp B/P (MAP) Pulse Ox O2 Delivery O2 Flow Rate FiO2 03/27/20 09:28 3.0 03/27/20 06:00 97.9 80 20 130/67 (88) 95 Nasal Cannula I&O- Last 24 Hours up to 6 AM 03/27/20 06:00 Intake Total 1120 ml Output Total 500 ml Balance 620 ml Laboratory Data 24H LABS Laboratory Tests 2 03/26/20 18:47: Immature Granulocyte % (Auto) 0.3, Neutrophils (%) (Auto) 68.0H, Lymphocytes (%) (Auto) 20.1L, Monocytes (%) (Auto) 9.2H, Eosinophils (%) (Auto) 2.0, Basophils (%) (Auto) 0.4, Neutrophils # (Auto) 6.1, Lymphocytes # (Auto) 1.8, Monocytes # (Auto) 0.8, Eosinophils # (Auto) 0.2, Basophils # (Auto) 0.0, Nucleated Red Blood Cells % (auto) 0.0, Prothrombin Time 14.0, Prothromb Time International Ratio 1.11, Activated Partial Thromboplast Time 22.0L, Anion Gap 6L, Glomerular Filtration Rate 28.1L, Estimated Mean Plasma Glucose 114H, Hemoglobin A1c 5.6, Uric Acid 8.8H, Calcium Level 9.2, Iron Level 21L, Total Iron Binding Capacity 343, Transferrin % Saturation 6.1L, Ferritin 40, Total Bilirubin 0.3, Direct Bilirubin < 0.1, Aspartate Amino Transf (AST/SGOT) 11, Alanine Aminotransferase (ALT/SGPT) 26, Alkaline Phosphatase 85, Total Creatine Kinase 109, Creatine Kinase MB 2.7, Creatine Kinase MB Relative Index 2.48, Troponin I < 0.02, UI-Xgx-D-Type Natriuretic Peptide 480H, Total Protein 7.5, Total Protein (PEP) 6.8, Albumin 3.5, Albumin/Globulin Ratio 0.88L, Lipase 134, Vitamin B12 Level 417, 25-Hydroxy Vitamin D Total 18.2L, Red Blood Cell Folate 960H, Thyroid Stimulating Hormone (TSH) 1.020, Parathyroid Hormone (Intact) 127.6H, Complement C3 109, Complement C4 24, Hepatitis B Surface Antigen NEGATIVE, Hepatitis B Surface Antibody NEGATIVE 03/26/20 21:03: Prothrombin Time 14.7H, Prothromb Time International Ratio 1.18, Activated Partial Thromboplast Time 73.4H, Blood Gas Puncture Site UNKNOWN, Blood Gas Bicarbonate Standard 29.8, Venous Blood pH 7.400, Venous Blood Partial Pressure CO2 52.1H, Venous Blood Partial Pressure O2 132.3H, Venous Blood Total Carbon Dioxide 33.1H, Venous Blood HCO3 31.5H, Venous Blood Oxygen Saturation 98.8H, Venous Blood Base Excess 5.9H 03/26/20 21:56: Bedside Glucose (Misc Panel) 196H 03/27/20 06:19: Urine Random Creatinine 71.0, Urine Random Total Protein 12.0, Urine Random Sodium 45, Urine Random Potassium 49.7, Urine Random Urea Nitrogen 504 03/27/20 06:20: Urine Color YELLOW, Urine Appearance CLEAR, Urine pH 5.0, Urine Specific [place] 1.011, Urine Protein NEGATIVE, Urine Glucose (Auto)(UA) NEGATIVE, Urine Ketones (Auto) NEGATIVE, Urine Blood NEGATIVE, Urine Nitrite NEGATIVE, Urine Bilirubin NEGATIVE, Urine Urobilinogen 0.2, Urine Leukocyte Esterase (Auto) NEGATIVE, Urine WBC (Auto) 0, Urine RBC (Auto) 1, Urine Hyaline Casts (Auto) 3, Urine Bacteria (Auto) NEGATIVE, Urine Squamous Epithelial Cells 0, Urine Mucus (Auto) SMALL, Urine Sperm (Auto) 03/27/20 06:26: Nucleated Red Blood Cells % (auto) 0.0, Anion Gap 5L, Glomerular Filtration Rate 37.8, Calcium Level 8.6L, Total Bilirubin 0.4, Aspartate Amino Transf (AST/SGOT) 12, Alanine Aminotransferase (ALT/SGPT) 22, Alkaline Phosphatase 80, Total Protein 6.8, Albumin 3.3, Albumin/Globulin Ratio 0.94L CBC/BMP Laboratory Tests 03/26/20 18:47 03/27/20 00:16 03/27/20 06:26 MIMI MEDRANO MD March 27, 2020 11:29
[2020-03-27] MEDS: ALBUTEROL SULFATE 2.5 MG/0.5 ML INH NEB SOLN NEB PRN (12:09)
[2020-03-27 14:00] VITALS: BP 128/66
[2020-03-27] MEDS: **NOTE PATIENT COMMENT** MISC XX SCH (21:00)
[2020-03-27] MEDS: ATORVASTATIN 10 MG TAB PO SCH (21:03)
[2020-03-27 22:00] VITALS: BP 144/59
[2020-03-28] MEDS: NS 1,000 ML IV SCH ×2 (00:37→04:00)
[2020-03-28 06:00] VITALS: BP 135/58
[2020-03-28 06:00] LABS: BASO % 0.2 % (0.0-1.0); EOS % 0.4 % (0.0-3.0); HEMATOCRIT 27.5 % (42.0-52.0); HEMOGLOBIN 8.6 g/dl (13.5-17.5); LYMPH # 1.2 10^3/uL (1.5-5.0); LYMPH % 15.3 % (24.0-44.0); MEAN CORPUSCULAR HEMOGLOBIN 30.5 pg (27.0-33.0); MEAN CORPUSCULAR HGB CONC 31.3 g/dl (32.0-36.5); MEAN CORPUSCULAR VOLUME 97.5 fl (80.0-96.0); MONO # 0.7 10^3/uL (0.0-0.8); MONO % 8.9 % (0.0-5.0); NEUTROPHILS % 74.8 % (36.0-66.0); PLATELET COUNT, AUTOMATED 183 10^3/uL (150-450); RED BLOOD COUNT 2.82 10^6/uL (4.30-6.10); WHITE BLOOD COUNT 8.1 10^3/uL (4.0-10.0)
[2020-03-28] MEDS: ALBUTEROL SULFATE 2.5 MG/0.5 ML INH NEB SOLN NEB PRN (06:12)
[2020-03-28] MEDS: TIOTROPIUM INHALER/CAPSULE (SPIRIVA) INH SCH (06:12)
[2020-03-28 06:32] LABS: ALBUMIN 3.4 GM/DL (3.2-5.2); BILIRUBIN,TOTAL 0.3 MG/DL (0.2-1.0); CALCIUM LEVEL 9.1 MG/DL (8.8-10.2); CREATININE FOR GFR 1.58 MG/DL (0.70-1.30); GLOMERULAR FILTRATION RATE 44.5 (>35); MAGNESIUM LEVEL 2.1 MG/DL (1.8-2.4); POTASSIUM SERUM 4.5 MEQ/L (3.5-5.1); TOTAL PROTEIN 7.2 GM/DL (6.4-8.2)
[2020-03-28] MEDS: HumaLOG INSULIN (NovoLOG) PER UNIT SC SCH ×4 (08:22→22:37)
[2020-03-28] MEDS: LEVEMIR (INSULIN DETEMIR) 1 UNITS/0.01ML SC SCH ×2 (08:22→22:37)
[2020-03-28] MEDS: HEPARIN SOD (PORCINE) 5000UNITS/ML VIAL (J1644 PER 1000UNITS) SC SCH ×2 (08:23→22:36)
[2020-03-28] MEDS: DOCUSATE SODIUM 100 MG CAP PO SCH ×2 (08:23→22:36)
[2020-03-28] MEDS: GABAPENTIN 400 MG CAP PO SCH ×3 (08:23→22:36)
[2020-03-28] MEDS: FUROSEMIDE 40 MG TAB PO SCH (08:23)
[2020-03-28] MEDS: FERROUS SULFATE 325MG TAB PO SCH (08:23)
[2020-03-28] MEDS: PANTOPRAZOLE 40MG TAB (PROTONIX) PO SCH (08:23)
[2020-03-28] MEDS ORDERED: predniSONE 10 MG TAB PO SCH (09:00)
--- NOTE | 2020-03-28 11:13 | IPNPDOC ---
Subjective Date Seen The patient was seen on 03/28/20. Subjective Chief Complaint/HPI Patient is comfortable in no distress. [facility], discussed with patient's family yesterday and all questions were answered General: Denies: ROS Unobtainable, Chills, Night Sweats, Fatigue, Malaise, Normal Appetite, Other Symptoms Constitutional: Denies: Chills, Fever, Malaise, Night Sweats, Weakness, Fatigue, Weight Loss, Lethargy, Other Pulmonary: Denies: Dyspnea, Cough, Pleuritic Chest Pain, Other Symptoms Cardiovascular: Denies: Chest Pain, Palpitations, Orthopnea, Paroxysmal Noc. Dyspnea, Edema, Lt Headedness, Other Symptoms Gastrointestinal: Denies: Nausea, Vomiting, Abdominal Pain, Diarrhea, Con stipation, Melena, Hematochezia, Other Symptoms Musculoskeletal: Denies: Neck Pain, Back Pain, Shoulder Pain, Arm Pain, Hand Pain, Leg Pain, Foot Pain, Joint Pain, Muscle Pain, Spasms, Other Symptoms Neurological: Denies: Weakness, Numbness, Incoordination, Change in speech, Confusion, Seizures, Other Symptoms Objective Physical Examination Chest Exam: Positive: Clear to auscultation, Normal air movement Heart Exam: Positive: Rate Normal, Normal S1, Normal S2 Abdomen Exam: Positive: Normal bowel sounds, Soft Extremity Exam: Positive: Other (. 2+ bipedal edema) Skin Exam: Positive: Nl turgor and temperature Neuro Exam: Positive: Sensation Intact, Cranial Nerves 3-12 NL Psych Exam: Positive: Mood NL, Oriented x 3 Assessment /Plan Problems (1) Chronic anemia Status: Chronic Problem Text: His old record checked his baseline hemoglobin has been 9.0 Is a repeat hemoglobin level this morning is 8.3 and hematocrit 27.1 I doubt there is any concern for acute anemia as patient has a history of stable chronic anemia Anemia workup has been ordered by admitting physician and will follow when available Will monitor CBC on daily basis and transfuse as needed Discussed with patient's granddaughter over the phone if patient requires a GI workup will has to be done as an outpatient as we don't have a GI consultation available for next 2 weeks, we have surgeons available who are only performing emergent EGDs and colonoscopies. If needed (2) MONICA (acute kidney injury) Status: Resolved Problem Text: MONICA on CK D, most likely secondary to poor oral intake and meds All old records checked patient's baseline creatinine is 1.5 Patient's creatinine this morning 1.5 Will DC patient's IV fluid as he has reached his baseline creatinine level Encourage oral hydration (3) Weakness Status: Chronic Problem Text: Most likely deconditioning PT/OT was called Patient will probably need physical therapy once [facility] back [facility] (4) COPD exacerbation Status: Acute Problem Text: Patient's lungs are clear to auscultation today Improved respiratory status with prednisone Slowly tapered off prednisone and DC it Continue nebulizer treatment as per orders Plan/VTE VTE Prophylaxis Ordered?: Yes VS, I&O, 24H, Fishbone Vital Signs/I&O Vital Signs Date Time Temp Pulse Resp B/P (MAP) Pulse Ox O2 Delivery O2 Flow Rate FiO2 03/28/20 06:00 96.9 68 20 135/58 (83) 98 Nasal Cannula 3.0 I&O- Last 24 Hours up to 6 AM 03/28/20 06:00 Intake Total 2830 ml Output Total 950 ml Balance 1880 ml Laboratory Data 24H LABS Laboratory Tests 2 03/27/20 11:23: Bedside Glucose (Misc Panel) 222H 03/27/20 16:37: Bedside Glucose (Misc Panel) 201H 03/27/20 20:30: Bedside Glucose (Misc Panel) 287H 03/28/20 05:50: Immature Granulocyte % (Auto) 0.4, Neutrophils (%) (Auto) 74.8H, Lymphocytes (%) (Auto) 15.3L, Monocytes (%) (Auto) 8.9H, Eosinophils (%) (Auto) 0.4, Basophils (%) (Auto) 0.2, Neutrophils # (Auto) 6.0, Lymphocytes # (Auto) 1.2L, Monocytes # (Auto) 0.7, Eosinophils # (Auto) 0.0, Basophils # (Auto) 0.0, Nucleated Red Blood Cells % (auto) 0.0, Anion Gap 5L, Glomerular Filtration Rate 44.5, Calcium Level 9.1, Magnesium Level 2.1, Total Bilirubin 0.3, Aspartate Amino Transf (AST/SGOT) 12, Alanine Aminotransferase (ALT/SGPT) 26, Alkaline Phosphatase 95, Total Protein 7.2, Albumin 3.4, Albumin/Globulin Ratio 0.89L CBC/BMP Laboratory Tests 03/27/20 11:59 03/28/20 05:50 MIMI MEDRANO MD March 28, 2020 11:13
[2020-03-28 14:00] VITALS: BP 140/55
[2020-03-28] MEDS: IPRATROPIUM 0.5MG/ALBUTEROL 2.5MG INH SOL UD 3ML (DUONEB)(J7620) NEB PRN (14:41)
[2020-03-28] MEDS: **NOTE PATIENT COMMENT** MISC XX SCH (21:00)
[2020-03-28 22:00] VITALS: BP 123/76
[2020-03-28] MEDS: ATORVASTATIN 10 MG TAB PO SCH (22:36)
[2020-03-29 05:33] LABS: HEMATOCRIT 28.6 % (42.0-52.0); HEMOGLOBIN 8.9 g/dl (13.5-17.5); MEAN CORPUSCULAR HEMOGLOBIN 29.9 pg (27.0-33.0); MEAN CORPUSCULAR HGB CONC 31.1 g/dl (32.0-36.5); PLATELET COUNT, AUTOMATED 215 10^3/uL (150-450); RED BLOOD COUNT 2.98 10^6/uL (4.30-6.10); WHITE BLOOD COUNT 8.8 10^3/uL (4.0-10.0)
[2020-03-29 06:00] VITALS: BP 124/56
[2020-03-29 06:04] LABS: CALCIUM LEVEL 8.8 MG/DL (8.8-10.2); CREATININE FOR GFR 1.44 MG/DL (0.70-1.30); GLOMERULAR FILTRATION RATE 49.5 (>35); POTASSIUM SERUM 4.5 MEQ/L (3.5-5.1)
[2020-03-29] MEDS: IPRATROPIUM 0.5MG/ALBUTEROL 2.5MG INH SOL UD 3ML (DUONEB)(J7620) NEB PRN ×2 (07:15→16:02)
[2020-03-29] MEDS: TIOTROPIUM INHALER/CAPSULE (SPIRIVA) INH SCH (07:15)
[2020-03-29] MEDS: HumaLOG INSULIN (NovoLOG) PER UNIT SC SCH ×4 (07:55→22:39)
[2020-03-29] MEDS: LEVEMIR (INSULIN DETEMIR) 1 UNITS/0.01ML SC SCH ×2 (08:30→22:40)
[2020-03-29] MEDS: HEPARIN SOD (PORCINE) 5000UNITS/ML VIAL (J1644 PER 1000UNITS) SC SCH (08:31)
[2020-03-29] MEDS: FUROSEMIDE 40 MG TAB PO SCH (08:31)
[2020-03-29] MEDS: PANTOPRAZOLE 40MG TAB (PROTONIX) PO SCH (08:31)
[2020-03-29] MEDS: DOCUSATE SODIUM 100 MG CAP PO SCH ×2 (08:31→22:38)
[2020-03-29] MEDS: FERROUS SULFATE 325MG TAB PO SCH ×2 (08:31→22:38)
[2020-03-29] MEDS: GABAPENTIN 400 MG CAP PO SCH ×3 (08:31→22:38)
[2020-03-29] MEDS ORDERED: predniSONE 20 MG TAB PO SCH (09:00)
--- NOTE | 2020-03-29 11:52 | IPNPDOC ---
Subjective Date Seen The patient was seen on 03/29/20. Subjective Chief Complaint/HPI Patient is comfortable, no apparent distress. Offers no complaints General: Denies: ROS Unobtainable, Chills, Night Sweats, Fatigue, Malaise, Normal Appetite, Other Symptoms Constitutional: Denies: Chills, Fever, Malaise, Night Sweats, Weakness, Fatigue, Weight Loss, Lethargy, Other Skin: Denies: Rash, Lesions, Jaundice, Bruising, Itching, Dry, Breakdown, Nail Changes, Other Cardiovascular: Denies: Chest Pain, Palpitations, Orthopnea, Paroxysmal Noc. Dyspnea, Edema, Lt Headedness, Other Symptoms Gastrointestinal: Denies: Nausea, Vomiting, Abdominal Pain, Diarrhea, Constipation, Melena, Hematochezia, Other Symptoms Musculoskeletal: Denies: Neck Pain, Back Pain, Shoulder Pain, Arm Pain, Hand Pain, Leg Pain, Foot Pain, Joint Pain, Muscle Pain, Spasms, Other Symptoms Neurological: Denies: Weakness, Numbness, Incoordination, Change in speech, Confusion, Seizures, Other Symptoms Objective Physical Examination Chest Exam: Positive: Clear to auscultation, Normal air movement Heart Exam: Positive: Rate Normal, Normal S1, Normal S2 Abdomen Exam: Positive: Normal bowel sounds, Soft Extremity Exam: Positive: Other (. 2+ bipedal edema) Skin Exam: Positive: Nl turgor and temperature Neuro Exam: Positive: Sensation Intact, Cranial Nerves 3-12 NL Psych Exam: Positive: Mood NL, Oriented x 3 Assessment /Plan Problems (1) Chronic anemia Status: Chronic Problem Text: His old record checked his baseline hemoglobin has been 9.0 I doubt there is any concern for acute anemia as patient has a history of stable chronic anemia Shows hemoglobin has been stable today is 8.9 and hematocrit 28.6 Discussed with patient and granddaughter over the phone and all workup management and plans were explained to her yesterday Patient will be discharged tomorrow morning back to [facility] and they can schedule outpatient GI workup including colonoscopy and EGD with Dr. Pinzon /Dr. Duncan. (2) MONICA (acute kidney injury) Status: Resolved Problem Text: MONICA on CK D, most likely secondary to poor oral intake and meds All old records checked patient's baseline creatinine is 1.5 Patient's creatinine is 1.44, which is well below his baseline Will DC patient's IV fluid as he has reached his baseline creatinine level Encourage oral hydration (3) Weakness Status: Chronic Problem Text: Most likely deconditioning PT/OT was called Patient will probably need physical therapy once [facility] (4) COPD exacerbation Status: Acute Problem Text: Patient's lungs are clear to auscultation today Improved respiratory status with prednisone Slowly tapered off prednisone and DC it Continue nebulizer treatment as per orders Plan/VTE VTE Prophylaxis Ordered?: Yes VS, I&O, 24H, Fishbone Vital Signs/I&O Vital Signs Date Time Temp Pulse Resp B/P (MAP) Pulse Ox O2 Delivery O2 Flow Rate FiO2 03/29/20 09:00 3.0 03/29/20 06:00 98.2 70 18 124/56 (78) 93 Nasal Cannula I&O- Last 24 Hours up to 6 AM 03/29/20 06:00 Intake Total 2030 ml Output Total 3800 ml Balance -1770 ml Laboratory Data 24H LABS Laboratory Tests 2 03/28/20 16:33: Bedside Glucose (Misc Panel) 226H 03/28/20 22:08: Bedside Glucose (Misc Panel) 283H 03/29/20 05:20: Nucleated Red Blood Cells % (auto) 0.0, Anion Gap 6L, Glomerular Filtration Rate 49.5, Calcium Level 8.8 03/29/20 11:31: Bedside Glucose (Misc Panel) 159H CBC/BMP Laboratory Tests 03/29/20 05:20 MIMI MEDRANO MD March 29, 2020 11:52
[2020-03-29 14:00] VITALS: BP 116/44
[2020-03-29] MEDS: SODIUM CHLORIDE NASAL 0.65% SPRAY BTL (OCEAN) PRN ×2 (15:59→22:40)
[2020-03-29] MEDS: **NOTE PATIENT COMMENT** MISC XX SCH (21:00)
[2020-03-29 22:00] VITALS: BP 118/45
[2020-03-29] MEDS: ATORVASTATIN 10 MG TAB PO SCH (22:38)
[2020-03-30] MEDS: IPRATROPIUM 0.5MG/ALBUTEROL 2.5MG INH SOL UD 3ML (DUONEB)(J7620) NEB PRN ×2 (02:46→07:15)
[2020-03-30 06:00] VITALS: BP 107/56
[2020-03-30 06:11] LABS: BASO % 0.3 % (0.0-1.0); EOS # 0.1 10^3/uL (0.0-0.5); EOS % 0.8 % (0.0-3.0); HEMATOCRIT 25.2 % (42.0-52.0); LYMPH # 1.7 10^3/uL (1.5-5.0); LYMPH % 29.1 % (24.0-44.0); MEAN CORPUSCULAR HEMOGLOBIN 30.5 pg (27.0-33.0); MEAN CORPUSCULAR HGB CONC 31.7 g/dl (32.0-36.5); MEAN CORPUSCULAR VOLUME 96.2 fl (80.0-96.0); MONO # 0.6 10^3/uL (0.0-0.8); MONO % 9.3 % (0.0-5.0); NEUTROPHILS # 3.6 10^3/uL (1.5-8.5); NEUTROPHILS % 60.2 % (36.0-66.0); PLATELET COUNT, AUTOMATED 199 10^3/uL (150-450); RED BLOOD COUNT 2.62 10^6/uL (4.30-6.10); WHITE BLOOD COUNT 5.9 10^3/uL (4.0-10.0)
[2020-03-30 06:51] LABS: BILIRUBIN,TOTAL 0.5 MG/DL (0.2-1.0); CALCIUM LEVEL 9.1 MG/DL (8.8-10.2); CREATININE FOR GFR 1.56 MG/DL (0.70-1.30); GLOMERULAR FILTRATION RATE 45.1 (>35); POTASSIUM SERUM 4.1 MEQ/L (3.5-5.1); TOTAL PROTEIN 6.7 GM/DL (6.4-8.2)
[2020-03-30] MEDS: TIOTROPIUM INHALER/CAPSULE (SPIRIVA) INH SCH (07:15)
[2020-03-30] MEDS: HumaLOG INSULIN (NovoLOG) PER UNIT SC SCH ×2 (07:54→12:00)
[2020-03-30] MEDS: LEVEMIR (INSULIN DETEMIR) 1 UNITS/0.01ML SC SCH (07:55)
[2020-03-30] MEDS: DOCUSATE SODIUM 100 MG CAP PO SCH (07:55)
[2020-03-30] MEDS: PANTOPRAZOLE 40MG TAB (PROTONIX) PO SCH (07:55)
[2020-03-30] MEDS: GABAPENTIN 400 MG CAP PO SCH (07:56)
[2020-03-30] MEDS: FERROUS SULFATE 325MG TAB PO SCH (07:56)
[2020-03-30] MEDS: FUROSEMIDE 40 MG TAB PO SCH (07:56)
[2020-03-30] MEDS ORDERED: predniSONE 20 MG TAB PO SCH (09:00)
[2020-03-30] MEDS ORDERED: FERR325T18 PO (10:29)
--- NOTE | 2020-03-30 13:33 | DS.PDOC ---
Discharge Summary General Date of Admission Mar 26, 2020 at 20:01 Date of Discharge 03/30/20 Discharge Summary PROCEDURES PERFORMED DURING STAY: [None]. ADMITTING DIAGNOSES: 1. [Anemia, possible GI bleed]. DISCHARGE DIAGNOSES: 1. [Acute on chronic anemia, and acute kidney injury]. COMPLICATIONS/CHIEF COMPLAINT: Acute Anemia Monica Weakness. HISTORY OF PRESENT ILLNESS: [This is an 84 old gentleman who was sent from [facility] for evaluation of acute anemia. The patient's only complaint is of feeling weak and falling several times over the last few days; he denies hitting his head. He denies having chest pain, dizziness, abdominal pain, or change in his chronic cough. He is feeling a bit short of breath right now; he reports having a BiPAP or CPAP machine which he uses intermittently, ev en during the day. He is not sure what the settings are; I called [facility] to obtain the settings but there was no response. Per discussion with Xavier Hunt, the patient's Hemoccult was positive.]. HOSPITAL COURSE: [Patient was admitted with a low hemoglobin and hematocrit. And he was transferred from [facility]. He came from chief complaints of low hemoglobin and weakness. His old record checked his baseline hemoglobin has been 9.0 Patient anemia workup was ordered and his hemoglobin was closely followed without any changes in his baseline hemoglobin Unfortunately GI workup could not be obtained including EGD and colonoscopy as we don't have GI coverage present at the hospital, but he is clinically stable and his workup can be done as an outpatient Discussed with patient and granddaughter over the phone and all workup management and plans were explained to her yesterday Patient will be discharged tomorrow morning back to [facility] and they can schedule outpatient GI workup including colonoscopy and EGD with Dr. Pinzon /Dr. Duncan. Monitors patient's hemoglobin and hematocrit every weekly Regarding his MONICA on CKD, most likely secondary to poor oral intake and meds All old records checked patient's baseline creatinine is 1.5 Patient's creatinine is improved very well and IV fluids were DC'd His oral intake of liquids was encouraged and he is following his instructions Regarding his weakness which most likely secondary to deconditioning PT/OT was called and he was mobilized on the floor Patient will probably need physical therapy once discharged back to [facility] Patient's lungs are clear to auscultation today Improved respiratory status with prednisone Slowly tapered off prednisone and DC it Continue nebulizer treatment as per orders]. DISCHARGE MEDICATIONS: Please see below. ALLERGIES: Please see below. PHYSICAL EXAMINATION ON DISCHARGE: VITAL SIGNS: Please see below. GENERAL: [Within normal limits] HEENT: [June extraocular muscles intact] NECK: [Supple] CARDIOVASCULAR EXAMINATION: [S1, S2, regular] RESPIRATORY EXAMINATION: [Clear to A&P] ABDOMINAL EXAMINATION: [, Soft, nontender, bowel sounds present] EXTREMITIES: [No clubbing, cyanosis, edema] SKIN: [Normal] NEUROLOGICAL EXAMINATION: [. No focal motor sensory deficit] PSYCHIATRIC EXAMINATION: [Normal] LABORATORY DATA: Please see below. IMAGING: [Chest x-ray:Cardiomegaly and chronic interstitial changes. No acute pulmonary disease.] PROGNOSIS: [Good] ACTIVITY: [As tolerated]. DIET: [As tolerated] DISCHARGE PLAN: [Discharged back to [facility]] DISPOSITION: Snf Other Intermediate. DISCHARGE INSTRUCTIONS: 1. [As per discharge instructions]. ITEMS TO FOLLOWUP ON ON OUTPATIENT: 1. [Follow with GI for EGD and colonoscopy as an outpatient as soon as possible]. DISCHARGE CONDITION: [Stable]. TIME SPENT ON DISCHARGE: 31 minutes. Vital Signs/I&Os Vital Signs Date Time Temp Pulse Resp B/P (MAP) Pulse Ox O2 Delivery O2 Flow Rate FiO2 03/30/20 07:54 3.0 03/30/20 06:00 98.2 66 18 107/56 (73) 99 Nasal Cannula I&O- Last 24 Hours up to 6 AM 03/30/20 06:00 Intake Total 1700 ml Output Total 50 ml Balance 1650 ml Laboratory Data Labs 24H Laboratory Tests 2 03/29/20 16:41: Bedside Glucose (Misc Panel) 245H 03/29/20 20:37: Bedside Glucose (Misc Panel) 302H 03/30/20 05:53: Immature Granulocyte % (Auto) 0.3, Neutrophils (%) (Auto) 60.2, Lymphocytes (%) (Auto) 29.1, Monocytes (%) (Auto) 9.3H, Eosinophils (%) (Auto) 0.8, Basophils (%) (Auto) 0.3, Neutrophils # (Auto) 3.6, Lymphocytes # (Auto) 1.7, Monocytes # (Auto) 0.6, Eosinophils # (Auto) 0.1, Basophils # (Auto) 0.0, Nucleated Red Blood Cells % (auto) 0.0, Anion Gap 4L, Glomerular Filtration Rate 45.1, Calcium Level 9.1, Total Bilirubin 0.5#, Aspartate Amino Transf (AST/SGOT) 11, Alanine Aminotransferase (ALT/SGPT) 26, Alkaline Phosphatase 82, Total Protein 6.7, Albumin 3.0L, Albumin/Globulin Ratio 0.81L 03/30/20 11:46: Bedside Glucose (Misc Panel) 210H CBC/BMP Laboratory Tests 03/30/20 05:53 FSBS Laboratory Tests Test 03/29/20 16:41 03/29/20 20:37 03/30/20 11:46 Range/Units Bedside Glucose (Misc Panel) 245 302 210 83-110 MG/DL Discharge Medications Scheduled Atorvastatin Calcium (Atorvastatin Calcium) 10 Mg Tablet, 10 MG PO QHS, (Reported) Ferrous Sulfate (Ferrous Sulfate) 325 Mg Tablet, 325 MG PO BID Fluticasone Furoate (Arnuity Ellipta) 100 Mcg Blst.w.dev, 1 PUFF INH DAILY, (Reported) Furosemide (Furosemide) 40 Mg Tablet, 40 MG PO DAILY, (Reported) Gabapentin (Gabapentin) 400 Mg Capsule, 400 MG PO TID, (Reported) Insulin Aspart (Novolog Flexpen) 100 Unit/1 Ml Insuln.pen, 1 DOSE SC AC, (Reported) PER SLIDING SCALE Insulin Detemir (Levemir Flextouch) 100 Unit/1 Ml Insuln.pen, 15 UNIT SC BID, (Reported) Lisinopril (Lisinopril) 2.5 Mg Tablet, 2.5 MG PO DAILY, (Reported) Metformin HCl (Metformin HCl) 500 Mg Tablet, 500 MG PO BID, (Reported) Pantoprazole Sodium (Pantoprazole Sodium) 40 Mg Tablet.dr, 40 MG PO DAILY, (Reported) Potassium Chloride (Klor-Con M20) 20 Meq Tab.er.prt, 20 MEQ PO DAILY, (Reported) Tiotropium [place] (Spiriva Respimat) 4 Gm Mist.inhal, 2 PUFF INH DAILY, (Reported) Scheduled PRN Acetaminophen (Acetaminophen 8 Hour) 650 Mg Tablet.er, 650 MG PO TID PRN for PAIN, (Reported) Albuterol Sulfate (Ventolin Hfa) 18 Gm Hfa.aer.ad, 2 PUFF INH Q4H PRN for SHORTNESS OF BREATH, (Reported) Cyclobenzaprine HCl (Cyclobenzaprine HCl) 10 Mg Tablet, 10 MG PO QHS PRN for MUSCLE SPASMS, (Reported) Diclofenac Sodium (Diclofenac Sodium) 1% 100GM Gel..gram., 1 GM TOP TID PRN for PAIN, (Reported) APPLY TO FEET Ipratropium/Albuterol Sulfate (Iprat-Albut 0.5-3(2.5) mg/3 ml) 3 Ml Ampul.neb, 3 ML INH Q4H PRN for SHORTNESS OF BREATH, (Reported) Allergies Coded Allergies: No Known Allergies (Verified , 07/31/07) MIMI MEDRANO MD March 30, 2020 13:33
[2020-03-31 11:10] LABS: ALBUMIN % 54.1 % (55.8-66.1)
[2020-03-31 11:11] LABS: ALBUMIN 3.68 GM/DL (3.29-5.55); ALPHA-1-GLOBULINS 0.34 GM/DL (0.17-0.41); ALPHA-2-GLOBULINS 0.84 GM/DL (0.42-0.99); ALPHA-2-GLOBULINS % 12.3 % (7.1-11.8); BETA-1-GLOBULINS 0.46 GM/DL (0.28-0.60); BETA-1-GLOBULINS % 6.8 % (4.7-7.2); BETA-2-GLOBULINS 0.43 GM/DL (0.19-0.55); BETA-2-GLOBULINS % 6.3 % (3.2-6.5); GAMMA GLOBULIN % 15.5 % (11.1-18.8); GAMMA GLOBULINS 1.05 GM/DL (0.65-1.58)
== END 2020-03-30 12:30 | DRG 683 ==
LOC: EDBD 18:19 → M ED 18:19 → M ED INP 20:01 → ENRESERV 20:24 → M MSPAV 21:23
PROVIDERS: ADMIT Internal Medicine; ATTEND Internal Medicine
DX: N17.9 Acute kidney failure, unspecified (principal); J96.10 Chronic respiratory failure, unspecified whether with hypoxia or hypercapnia; J44.1 Chronic obstructive pulmonary disease with (acute) exacerbation; D64.9 Anemia, unspecified; I25.10 Atherosclerotic heart disease of native coronary artery without angina pectoris; E78.5 Hyperlipidemia, unspecified; I12.9 Hypertensive chronic kidney disease with stage 1 through stage 4 chronic kidney disease, or unspecified chronic kidney disease; E86.0 Dehydration; R53.1 Weakness; Z66 Do not resuscitate; E11.40 Type 2 diabetes mellitus with diabetic neuropathy, unspecified; N18.9 Chronic kidney disease, unspecified; E66.9 Obesity, unspecified; M51.36 Other intervertebral disc degeneration, lumbar region; K21.9 Gastro-esophageal reflux disease without esophagitis; R26.89 Other abnormalities of gait and mobility; Z87.891 Personal history of nicotine dependence; Z68.37 Body mass index [BMI] 37.0-37.9, adult; Z79.4 Long term (current) use of insulin; Z79.899 Other long term (current) drug therapy